=== PATIENT | male | born 1970 | race Caucasian/White ===

== ENCOUNTER 2024-12-16 07:37 | Emergency (ER) | payer BC ==
[2024-12-16 08:04] LABS: BASOPHILS PERCENT AUTO 0.2 % (0.0-1.0); EOSINOPHILS PERCENT AUTO 0.2 % (1.0-3.0); HEMATOCRIT 50.1 % (40.0-54.0); HEMOGLOBIN 17.4 g/dL (14.0-18.0); LYMPHOCYTES PERCENT AUTO 13.6 % (20.5-50.1); MEAN CORPUSCULAR HEMOGLOBIN 29.6 pg (27.0-34.0); MEAN CORPUSCULAR HGB CONC 34.7 g/dL (33.0-35.0); MEAN CORPUSCULAR VOLUME 85.2 fL (80-100); MONOCYTES PERCENT AUTO 10.3 % (2-8); NEUTROPHILS PERCENT AUTO 75.7 % (42.2-75.2); PLATELET COUNT,PLT 213 10^3/uL (150-450); RED BLOOD CELL COUNT 5.88 10^6/uL (4.6-6.2); WHITE BLOOD CELL COUNT,WBC 13.6 10^3/uL (5.0-10.0)
[2024-12-16 08:19] LABS: APPEARANCE,URINE CLOUDY (CLEAR); BILIRUBIN,URINE NEGATIVE (NEGATIVE); COLOR,URINE DARK YELLOW (YELLOW); GLUCOSE,URINE 500 (NEGATIVE); KETONES,URINE 80 (NEGATIVE); LEUKOCYTE ESTERASE,URINE TRACE (NEGATIVE); NITRITE,URINE POSITIVE (NEGATIVE); OCCULT BLOOD,URINE LARGE (NEGATIVE); PH,URINE 5.5 (5.0-9.0); PROTEIN,URINE 100 (NEGATIVE); UROBILINOGEN,URINE 0.2 mg/dL (0.2-1.0)
[2024-12-16 08:23] LABS: ALANINE AMINOTRANSFERASE,ALT 31 U/L (16-63); ALKALINE PHOSPHATASE 85 U/L (46-116); ANION GAP 12.6 mEq/L (7-13); ASPARTATE AMNIOTRANSFERASE,AST 14 U/L (15-37); BILIRUBIN TOTAL 1.3 mg/dL (0.2-1.0); BLOOD UREA NITROGEN,BUN 16 mg/dL (7-18); BUN/CREATININE RATIO 13.7 (No establ ref range); CALCIUM 9.4 mg/dL (8.5-10.1); CARBON DIOXIDE,CO2 29 mmol/L (21-32); CHLORIDE,CL 99 mmol/L (98-107); CREATININE 1.17 mg/dL (0.70-1.30); ESTIMATED GFR 75 mL/min (>=60); GLUCOSE RANDOM 167 mg/dL (70-99); POTASSIUM,K 4.6 mmol/L (3.5-5.1); PROTEIN TOTAL,TP 8.1 g/dL (6.4-8.2); SODIUM,NA 136 mmol/L (136-145)
[2024-12-16 08:33] LABS: BACTERIA,URINE MODERATE /HPF (0-FEW/HPF); EPITHELIAL CELLS,URINE FEW /HPF (NOT SEEN); RBC,URINE >100 /HPF (0-5)
== END 2024-12-16 09:05 | disposition home or self-care (01) ==
LOC: DL.ED 07:37
DX: N20.0 Calculus of kidney (principal); Z88.8 Allergy status to other drugs, medicaments and biological substances
CPT/HCPCS: 36415; 74176; 80053; 81001; 85025; 87086; 87088; 87186; 99284